=== PATIENT | male | born 1965 | race Caucasian/White ===

== ENCOUNTER 2021-09-07 09:36 | Emergency (ER) | payer OTHER, SELFPAY ==
[2021-09-07 10:04] VITALS: BP 171/100; PULSE 100; RESP 18; TEMP 36.7; O2SAT 95; BMI 32.0
--- NOTE | 2021-09-07 10:13 | ED.GENADULT ---
HPI - General Adult General Chief complaint: Upper Respiratory Symptoms Stated complaint: COVID SYMPTONS Time Seen by Provider: 09/07/21 10:13 Source: patient Limitations: no limitations History of Present Illness HPI narrative: Patient presents with a few day history of congestion sinus pressure headache. Patient had a fever last night. Patient is on vaccinated for COVID-19 has a history of diet-controlled diabetes. Patient does not like to take medications or other vaccines. Symptoms mild to moderate patient states he has a dry cough at times. Symptoms mild to moderate. Related Data Allergies Allergy/AdvReac Type Severity Reaction Status Date / Time No Known Allergies Allergy Unverified 06/23/20 15:31 [No Known Allergies*] Review of Systems Constitutional: Constitutional: Denies chills and Reports fever(s) ENT: Reports nasal congestion and Reports sore throat Cardiovascular: Cardiovascular: Denies chest pain, Denies lightheadedness and Denies dyspnea Respiratory: Respiratory: Denies dyspnea Gastrointestinal: Gastrointestinal: Denies nausea and Denies vomiting Musculoskeletal: Musculoskeletal: Denies muscle weakness Endocrine: Endocrine: Reports no additional endocrine complaints [facility] Past Medical History Attestation statement: The following information was validated with the patient. Medical History Diabetes Social History Social History Advance Directives: No Advance Directives Information Provided: No Physical Exam Vital Signs: Vital Signs: Last Vital Signs Temp 98.1 F 09/07/21 10:04 Pulse 100 09/07/21 10:04 Resp 18 09/07/21 10:04 BP 171/100 H 09/07/21 10:04 Pulse Ox 95 09/07/21 10:04 BMI result Body Mass Index 32.0 vital signs have been reviewed as normal and appeared to be correct. Blood pressure normal. Heart rate normal. Respiration rate normal. Temperature normal. Oxygen saturation normal. Appearance: Alert. Oriented X3. No acute distress. Head: Normal external exam. Normocephalic. Atraumatic. Eyes: PERRLA. EOMI. Conjunctiva and sclera normal. Eyelids normal. ENT: Pharynx normal. Uvula midline. Moist mucous membranes. CVS: Heart regular rate and rhythm no murmurs and rubs Respiratory: Breath sounds are clear to auscultation bilaterally. No accessory muscle use noted. Abdomen: Soft nontender no rebound or guarding positive bowel sounds Back: No CVA tenderness. Full range of motion noted. Skin: Skin warm and dry. Normal skin color. Normal skin turgor. No rashes Extremities: No lower extremity edema. Extremities exhibit normal range of motion. Extremities nontender. Neuro: Oriented X 3. No motor deficit. No sensory deficit. Reflexes normal. Course Course Course Narrative: COVID-19 URI Viral syndrome Fever Sinusitis Rapid COVID-19 swab 10:40 a.m. Positive COVID-19 test case discussed with patient at length patient's risk factors of diet-controlled diabetes and obesity was discussed with patient patient has no interest in monoclonal antibody treatment. Patient states he will use [id number] treatment at home. Patient's O2 sat is 94% on room air patient denies any shortness of breath and wants no further treatment at this time. Vaccine options discussed with patient in the future patient is resistant to vaccines at this time. Medical Decision Making Lab Data Labs: Lab Results 09/07/21 Range/Units 10:13 COVID-19 (REG) Positive A (Negative) COVID-19 Clin Com See Note Discharge Plan Discharge Clinical Impression: COVID-19 Patient Disposition: Home, Self-Care Instructions: COVID-19 (Coronavirus Disease 2019) (ED) Additional Instructions: You tested positive COVID-19 Increase fluids rest Tylenol Motrin for pain fever Self quarantine for 10 days Return if symptoms worsen Stand Alone Forms: Work/School Release
[2021-09-07 10:35] LABS: COVID-19 Test Positive (Negative)
[2021-09-07 10:45] VITALS: RESP 18; O2SAT 95
== END 2021-09-07 10:48 | disposition home or self-care (01) ==
PROVIDERS: Physician Assistant; Emergency Provider Emergency Medicine; PCP Advanced Practice Midwife
DX: U07.1 COVID-19 (principal); R51.9 Headache, unspecified
CPT/HCPCS: 36415; 87635; 99283

== ENCOUNTER 2021-09-17 11:06 | Emergency (ER) | payer OTHER, SELFPAY ==
[2021-09-17 11:10] VITALS: BP 141/84; PULSE 109; RESP 18; TEMP 36.8; O2SAT 96; BMI 30.2
[2021-09-17 11:41] LABS: COVID-19 Test Positive (Negative)
--- NOTE | 2021-09-17 12:07 | ED.GENADULT ---
HPI - General Adult General Chief complaint: General Medical Stated complaint: diff breathing Time Seen by Provider: 09/17/21 11:35 Source: patient Mode of arrival: ambulatory Limitations: no limitations History of Present Illness HPI narrative: 55 yo male here seeking covid test to return to work. He tells me he tested positive 09/07 and is currently asymptomatic and is seeking covid test to return to work Related Data Allergies Allergy/AdvReac Type Severity Reaction Status Date / Time No Known Allergies Allergy Unverified 06/23/20 15:31 [No Known Allergies*] Review of Systems Review of Systems: Yes all other systems are reviewed and are negative Constitutional: Constitutional: Reports no additional constitutional complaints, Denies body ache(s), Denies chills, Denies fever(s), Denies headache(s) and Denies weakness Eyes: Eyes: Reports no additional eye complaints and Denies change in vision ENT: Reports system reviewed and no additional complaints, except as documented, Denies dizziness, Denies headache(s), Denies nasal congestion, Denies nasal discharge and Denies neck pain Cardiovascular: Cardiovascular: Reports no additional cardiovascular complaints, Denies chest pain, Denies leg edema and Denies dyspnea Respiratory: Respiratory: Reports no additional respiratory complaints, Denies cough and Denies dyspnea Gastrointestinal: Gastrointestinal: Reports no additional gastrointestinal complaints, Denies abdominal pain, Denies diarrhea, Denies nausea and Denies vomiting Genitourinary: Genitourinary: Denies urinary incontinence Musculoskeletal: Musculoskeletal: Reports no additional musculoskeletal complaints, Denies back pain, Denies arthralgias, Denies joint swelling, Denies neck pain, Denies numbness and Denies tingling Integumentary/Breasts: Skin/Breast: Reports system reviewed and no additional complaints, except as docu and Denies rash Neurologic: Reports system reviewed and no additional complaints, except as documented, Denies Abnormal speech present, Denies dizziness, Denies headache(s), Denies numbness, Denies tingling and Denies weakness PMFSH Past Medical History Attestation statement: The following information was validated with the patient. Source: old records reviewed and nursing notes reviewed Medical History Diabetes Social History Social History Advance Directives: Yes Advance Directives Information Provided: No Advance Directives on File: No Physical Exam Vital Signs: Vital Signs: Last Vital Signs Temp 98.2 F 09/17/21 11:10 Pulse 109 H 09/17/21 11:10 Resp 18 09/17/21 11:10 BP 141/84 H 09/17/21 11:10 Pulse Ox 96 09/17/21 11:10 BMI result Body Mass Index 30.2 Const: General: cooperative, healthy appearing, comfortable and no acute distress Orientation/consciousness: patient oriented x3 Limitations: no limitations HENMT: Head: Yes normal to inspection Ears: hearing grossly normal bilaterally General nose exam: Normal external nose present Face and sinus: Yes normal facial exam Mouth: Normal oral and palatal mucosa present Throat: Yes posterior oropharynx normal Eyes: General: appearance normal, both eyes and all related structures Pupils: Equal, round and reactive pupils present Neck: Neck: Yes normal visual inspection Chest: Chest palpation & inspection: normal inspection of the chest Resp: Effort & Inspection: normal respiratory effort Auscultation: clear to auscultation bilaterally Cardio: Rate: regular rate Rhythm: regular rhythm Peripheral pulses: Peripheral pulses 2+ throughout GI: Inspection: Yes normal to inspection Palpation (GI): Soft to palpation and nontender Auscultation: normal bowel sounds Back/Spine/Pelvis: Thoracic/Lumbar Spine: thoracic and lumbar spine normal to inspection Skin: General skin exam: no rashes or lesions noted Neuro: General: patient oriented x3, no focal motor deficits and normal sensation to monofilament Cranial nerves: Yes Equal, round and reactive pupils present Cognition (Neuro): normal cognition Speech: No Abnormal speech present Gait exam (Neuro): Normal gait present Motor exam (neuro): 5/5 motor strength present throughout Extrem: General: Yes normal to inspection Course Course Course Narrative: 55 yo male here seeking COVID test to return to work. Covid test was sent by triage nurse. Patient the positive on September 07 for COVID. He completed his quarantine today. He tells me that he is feeling well and has no symptoms. He spoke to his employer today and is supposed to return to work tomorrow. He tells me they are requesting he get retested for COVID prior to his return to work. I did explain to the patient that he may test positive for COVID for weeks after his initial diagnosis. This is not a reliable Tool to determine whether he should return to work or not. I explained to him as he is asymptomatic and has completed his quarantine he may return to work even if his test is positive. Medical Decision Making Medical Records Medical records reviewed: Yes I reviewed the patient's medical records. Lab Data Lab results reviewed: Yes I reviewed the patient's lab results. Labs: Lab Results 09/17/21 Range/Units 11:19 COVID-19 (REG) Positive A (Negative) COVID-19 Clin Com See Note Discharge Plan Discharge Clinical Impression: COVID-19 Patient Disposition: Home, Self-Care Instructions: COVID-19 (Coronavirus Disease 2019) (ED) Additional Instructions: You may test positive for weeks after having COVID. You do not need to continue to quarantine. You have completed your quarantine and are symptom free. Discuss this with your emplpyer Referrals: Jovita Shaw MD [Primary Care Provider] - 2 days Stand Alone Forms: Work/School Release Interventions: ED Discharge Assessment Last Done: 09/17/21 11:53 Discharge Date/Time: 09/17/21 11:54
== END 2021-09-17 11:54 | disposition home or self-care (01) ==
PROVIDERS: Emergency Provider Emergency Medicine; PCP Family Medicine
DX: U07.1 COVID-19 (principal)
CPT/HCPCS: 36415; 87635; 99283

== ENCOUNTER → 2024-11-11 15:26 | Outpatient (BNVA) | payer SELFPAY | PROVIDERS: PCP Family Medicine; Visit Provider Urology ==

== ENCOUNTER 2024-12-24 15:03 | Outpatient (AMB) | payer OTHER, SELFPAY ==
--- NOTE | 2024-12-24 15:14 | MHC.OFFVIS ---
Intake Visit Reasons: 4W/PSA/Testo/Med Review Intake Note: Patient is present today for a 4 week/PSA/Testo/Med review Urology Medication:Tadalafil Antibiotic Allergy:METFORMIN Blood Thinner:NONE Diagnostic Tech Required: No Allergies metformin Allergy (Mild, Verified 12/24/24 15:15) Unknown HPI Comments Details: Eloy is a pleasant male. He is a patient of Dr. Shaw. He is seen for the following urologic conditions - recurrent balanitis - erectile dysfunction in setting of type 2 diabetes Follow-up from daily tadalafil trial Low testosterone on review - 272, Free 7 Refill tadalafil prescription Add on demand 20 mg Three-month follow-up repeat lab Recurrent balanitis Has been on Jardiance 25 mg Known side effects balanitis Prior episodes before starting Jardiance Will start closure amoxicillin betamethasone cream Reduced Jardiance to 10 mg If not successful will stop Jardiance Recommend trial of tirzepetide Given complications from Jardiance Erectile dysfunction in setting of diabetes Start 5 mg tadalafil daily Plan check testosterone levels [facility] Medical History (Updated 12/24/24 @ 15:23 by Usman Gutierrez MD) Diabetes mellitus, type II Suspicious nevus Severe obesity Right sided sciatica Onychomycosis Long-term current use of insulin for diabetes mellitus HTN (hypertension) Hyperglycemia Hypercholesteremia Hernia Chronic low back pain Anxiety disorder ADD (attention deficit disorder) Balanitis Diabetes Surgical History (Updated 11/10/24 @ 12:09 by ANNA MARIE Kate) History of vasectomy History of hernia repair Review of Systems Const Denies chills and Denies fever(s) Card Reports no additional complaints and Denies syncope Resp Denies cough GI Denies abdominal pain and Denies heartburn Reports as per HPI and Denies change in libido Neuro Denies syncope Psych Denies change in libido Endo Denies change in libido Physical Exam Const General: cooperative, healthy appearing, comfortable and no acute distress Orientation/consciousness: patient oriented x3 HEENT Face and sinus: Yes normal facial exam Mouth: moist mucous membranes Neck Neck: Yes normal visual inspection, Yes full ROM and Yes trachea midline Chest Chest palpation & inspection: normal inspection of the chest Resp Effort & Inspection: normal respiratory effort, able to speak in complete sentences and no respiratory distress GI Inspection: Yes normal to inspection Back/Spine/Pelvis Cervical Spine: normal cervical lordosis Thoracic/Lumbar Spine: thoracic and lumbar spine normal to inspection Skin General skin exam: no rashes or lesions noted Neuro General: patient oriented x3, gait normal, tone normal and moves all extremities Extrem General: Yes normal to inspection and Yes capillary refill normal Assessment & Plan Assessment & Plan (1) Balanitis: Code(s): N48.1 - Balanitis Category: Medical (2) Erectile dysfunction associated with type 2 diabetes mellitus: Code(s): E11.69 - Type 2 diabetes mellitus with other specified complication; N52.1 - Erectile dysfunction due to diseases classified elsewhere Category: Medical (3) Hypogonadism in male: Code(s): E29.1 - Testicular hypofunction Category: Medical Plan Three-month follow-up lab work Orders: Orders Testosterone, Free/Total 3 Months E11.69 - Type 2 diabetes mellitus with other specified complication, N52.1 - Erectile dysfunction due to diseases classified elsewhere Medications: New tadalafil On demand medication take 60 minutes before intended activity [facility] [address] [id number] 20 mg PO ONCE 30 days PRN 30 tabs 0RF sexual activity E11.69 - Type 2 diabetes mellitus with other specified complication, N52.1 - Erectile dysfunction due to diseases classified elsewhere Changed From empagliflozin Stopped 25 mg, start 10 mg 10 mg PO DAILY 30 days 30 tabs 0RF N48.1 - Balanitis To empagliflozin Stopped 25 mg, start 10 mg 10 mg PO DAILY 90 days 90 tabs 1RF N48.1 - Balanitis Refilled tadalafil [facility] [address] [id number] 5 mg PO DAILY 90 days 90 tabs 1RF sexual activity E11.69 - Type 2 diabetes mellitus with other specified complication, N52.1 - Erectile dysfunction due to diseases classified elsewhere clotrimazole-betamethasone 1-0.05 % Apply thin coat 2 times per day 1 appl topical BID 4 weeks 45 grams 0RF N48.1 - Balanitis Patient Instructions: This note is constructed using voice recognition software. While every effort has been made to ensure accuracy physician allergist immunologist errors may have been included. Imaging studies, laboratory and physical exam results were discussed and reviewed in detail. No major barriers to patient understanding were identified. An opportunity to ask questions regarding the treatment plan was provided. All questions were answered. The patient expressed understanding and agreement with the above treatment plan. The patient is aware they should contact our office by phone for worsening of their current condition or the appearance of new urologic symptoms. Compliance is encouraged with any medications and followup testing that is ordered. It is a privilege to participate in the urologic care of your patient. If you have any questions or concerns regarding treatment for the above conditions, or other urologic issues, please do not hesitate to contact me. The office telephone contact is [phone]. Sincerely, Dr Usman Gutierrez MD, [facility] - Urology Compassionate Specialist Care for the Genitourinary System Coding Level of Care Code Est Pt Level 3 (30191) Diagnoses Balanitis N48.1 Erectile dysfunction associated with type 2 diabetes mellitus E11.69; N52.1 Hypogonadism in male E29.1
== END 2024-12-24 15:30 | disposition home or self-care (01) ==
LOC: HO.HUSH 15:04
PROVIDERS: PCP Family Medicine; Visit Provider Urology
DX: N48.1 Balanitis (principal); E11.69 Type 2 diabetes mellitus with other specified complication; N52.1 Erectile dysfunction due to diseases classified elsewhere; E29.1 Testicular hypofunction
CPT/HCPCS: 99213

== ENCOUNTER 2025-03-26 08:58 | Outpatient (AMB) | payer OTHER, SELFPAY ==
--- NOTE | 2025-03-26 08:59 | A.OFFVIS_ITS ---
Intake Visit Reasons: 3m/Testo Intake Note: Patient is present for 3M/TESTO Urology Medication:TADALAFIL,EMPAGLIFLOZIN Antibiotic Allergy:METFORMIN Blood Thinner:NONE Launch Manager Required: No Allergies metformin Allergy (Mild, Verified 03/26/25 09:00) Unknown HPI Comments Details: Eloy is a pleasant male. He is a patient of Dr. Shaw. He is seen for the following urologic conditions - recurrent balanitis - erectile dysfunction in setting of type 2 diabetes Telemedicine Evaluation 15 min Consultation [employer] Has been on daily tadalafil with 20 mg on demand Testosterone low 270 Will initiate testosterone therapy Had cut back on Jardiance to 10 mg with benefit for urination Recurrent balanitis Has been on Jardiance 25 mg Known side effects balanitis Prior episodes before starting Jardiance Will start closure amoxicillin betamethasone cream Reduced Jardiance to 10 mg If not successful will stop Jardiance Recommend trial of tirzepetide Given complications from Jardiance Erectile dysfunction in setting of diabetes Start 5 mg tadalafil daily Plan check testosterone levels [facility] Medical History Diabetes mellitus, type II Suspicious nevus Severe obesity Right sided sciatica Onychomycosis Long-term current use of insulin for diabetes mellitus HTN (hypertension) Hyperglycemia Hypercholesteremia Hernia Chronic low back pain Anxiety disorder ADD (attention deficit disorder) Balanitis Diabetes Surgical History History of vasectomy History of hernia repair Review of Systems Const All systems reviewed & are unremarkable except as noted in HPI and below Reports no additional complaints Resp Reports no additional complaints GI Reports no additional complaints Reports as per HPI Musc Reports no additional complaints Physical Exam Telemedicine evaluation Appropriate responses Regular breathing rate and rhythm HEENT Head: Yes normal to inspection Ears: hearing grossly normal bilaterally Eyes General: appearance normal, both eyes and all related structures Neck Neck: Yes normal visual inspection Chest Chest palpation & inspection: normal inspection of the chest Resp Effort & Inspection: normal respiratory effort and able to speak in complete sentences Telehealth Telehealth Telehealth Platform: [employer] Location of provider rendering services: practice address Location of patient: address on file Patient Identification confirmed using: Name, : Yes Telehealth method: video Patient verbally consented to treatment: Yes Patient verbally consented to billing insurance company: Yes Patient informed of any privacy concerns related to visit: Yes Minutes spent on Phone/Video with Pt.: 15 Assessment & Plan Assessment & Plan (1) Balanitis: Code(s): N48.1 - Balanitis Category: Medical (2) Erectile dysfunction associated with type 2 diabetes mellitus: Code(s): E11.69 - Type 2 diabetes mellitus with other specified complication; N52.1 - Erectile dysfunction due to diseases classified elsewhere Category: Medical (3) Hypogonadism in male: Code(s): E29.1 - Testicular hypofunction Category: Medical Plan Initiate testosterone Three-month follow-up lab work Orders: Orders Testosterone, Total 2 Months E29.1 - Testicular hypofunction Medications: New testosterone apply 2 pumps over max area - alternate shoulders on alternate days 2 pumps topical DAILY 75 grams 2RF 30 days E29.1 - Testicular hypofunction, R79.89 - Other specified abnormal findings of blood chemistry Patient Instructions: This note is constructed using voice recognition software. While every effort has been made to ensure accuracy printing roller handler errors may have been included. Imaging studies, laboratory and physical exam results were discussed and reviewed in detail. No major barriers to patient understanding were identified. An opportunity to ask questions regarding the treatment plan was provided. All questions were answered. The patient expressed understanding and agreement with the above treatment plan. The patient is aware they should contact our office by phone for worsening of their current condition or the appearance of new urologic symptoms. Compliance is encouraged with any medications and followup testing that is ordered. It is a privilege to participate in the urologic care of your patient. If you have any questions or concerns regarding treatment for the above conditions, or other urologic issues, please do not hesitate to contact me. The office telephone contact is [phone]. Sincerely, Dr Usman Gutierrez MD, [facility] - Urology Compassionate Specialist Care for the Genitourinary System Coding Level of Care Code Tele Est Pt Level 4 (91260) Complex EM visit Add On G2211 Diagnoses Balanitis N48.1 Erectile dysfunction associated with type 2 diabetes mellitus E11.69; N52.1 Hypogonadism in male E29.1
== END 2025-03-26 11:50 | disposition home or self-care (01) ==
LOC: HO.HUSH 08:58
PROVIDERS: PCP Family Medicine; Visit Provider Urology
DX: N48.1 Balanitis (principal); E11.69 Type 2 diabetes mellitus with other specified complication; N52.1 Erectile dysfunction due to diseases classified elsewhere; E29.1 Testicular hypofunction
CPT/HCPCS: 99214; G2211

== ENCOUNTER → 2025-03-26 08:58 | Outpatient (BNVA) | payer OTHER, SELFPAY | PROVIDERS: PCP Family Medicine; Visit Provider Urology ==

== ENCOUNTER 2025-09-01 10:35 | Outpatient (AMB) | payer OTHER, SELFPAY ==
--- NOTE | 2025-09-01 10:35 | MHC.OFFVIS ---
Intake Visit Reasons: Med Review/Testo Lab Intake Note: Reason for Visit: Telehealth Testosterone/Medication Review Urology Meds: Tadalafil, Testosterone, Empagliflozin, Clotrimazole Cream Blood Thinners: None Labs: Testosterone- 408 (06/30/2025) Imaging: None Last PVR: None Face Painter Required: No Accompanied by: Self / Same As Patient Allergies metformin Allergy (Mild, Verified 09/01/25 10:35) Unknown HPI Comments Details: Eloy is a pleasant male. He is a patient of Dr. Shaw. He is seen for the following urologic conditions - recurrent balanitis - erectile dysfunction in setting of type 2 diabetes Telemedicine Evaluation 15 min Consultation [facility] Mayra Video Has been on daily tadalafil with 20 mg on demand Slow improvement in testosterone Discussed application Continue therapy Six-month follow-up lab work Hypogonadism in male Labs - 12/29 272, 07/01 410 Current therapy topical Recurrent balanitis Has been on Jardiance 25 mg Known side effects balanitis Prior episodes before starting Jardiance Will start closure amoxicillin betamethasone cream Reduced Jardiance to 10 mg If not successful will stop Jardiance Recommend trial of tirzepetide Given complications from Jardiance Erectile dysfunction in setting of diabetes Continue 5 mg tadalafil daily [facility] Medical History Diabetes mellitus, type II Suspicious nevus Severe obesity Right sided sciatica Onychomycosis Long-term current use of insulin for diabetes mellitus HTN (hypertension) Hyperglycemia Hypercholesteremia Hernia Chronic low back pain Anxiety disorder ADD (attention deficit disorder) Balanitis Diabetes Surgical History History of vasectomy History of hernia repair Review of Systems Const All systems reviewed & are unremarkable except as noted in HPI and below Reports no additional complaints Resp Reports no additional complaints GI Reports no additional complaints Reports as per HPI Musc Reports no additional complaints Physical Exam Telemedicine evaluation Appropriate responses Regular breathing rate and rhythm HEENT Head: Yes normal to inspection Ears: hearing grossly normal bilaterally Eyes General: appearance normal, both eyes and all related structures Neck Neck: Yes normal visual inspection Chest Chest palpation & inspection: normal inspection of the chest Resp Effort & Inspection: normal respiratory effort and able to speak in complete sentences Telehealth Telehealth Telehealth Platform: [employer] Location of provider rendering services: practice address Location of patient: address on file Patient Identification confirmed using: Name, : Yes Telehealth method: video Patient verbally consented to treatment: Yes Patient verbally consented to billing insurance company: Yes Patient informed of any privacy concerns related to visit: Yes Minutes spent on Phone/Video with Pt.: 15 Assessment & Plan Assessment & Plan (1) Erectile dysfunction associated with type 2 diabetes mellitus: Code(s): E11.69 - Type 2 diabetes mellitus with other specified complication; N52.1 - Erectile dysfunction due to diseases classified elsewhere Category: Medical (2) Hypogonadism in male: Code(s): E29.1 - Testicular hypofunction Category: Medical Plan Six-month follow-up lab work Refill testosterone Orders: Orders Testosterone, Total 5 Months E29.1 - Testicular hypofunction Prostate Specific Antigen 5 Months E29.1 - Testicular hypofunction Hematocrit 5 Months E29.1 - Testicular hypofunction Medications: Refilled testosterone apply 2 pumps over max area - alternate shoulders on alternate days 2 pumps topical DAILY 75 grams 5RF 30 days E29.1 - Testicular hypofunction, R79.89 - Other specified abnormal findings of blood chemistry Patient Instructions: This note is constructed using voice recognition software. While every effort has been made to ensure accuracy seed collector errors may have been included. Imaging studies, laboratory and physical exam results were discussed and reviewed in detail. No major barriers to patient understanding were identified. An opportunity to ask questions regarding the treatment plan was provided. All questions were answered. The patient expressed understanding and agreement with the above treatment plan. The patient is aware they should contact our office by phone for worsening of their current condition or the appearance of new urologic symptoms. Compliance is encouraged with any medications and followup testing that is ordered. It is a privilege to participate in the urologic care of your patient. If you have any questions or concerns regarding treatment for the above conditions, or other urologic issues, please do not hesitate to contact me. The office telephone contact is [phone]. Sincerely, Dr Usman Gutierrez MD, [facility] - Urology Compassionate Specialist Care for the Genitourinary System Coding Level of Care Code Tele Est Pt Level 3 (89661) Complex visit Add On G2211 Diagnoses Erectile dysfunction associated with type 2 diabetes mellitus E11.69; N52.1 Hypogonadism in male E29.1
== END 2025-09-01 12:12 | disposition home or self-care (01) ==
LOC: HO.HUSH 10:35
PROVIDERS: PCP Family Medicine; Visit Provider Urology
DX: E11.69 Type 2 diabetes mellitus with other specified complication (principal); N52.1 Erectile dysfunction due to diseases classified elsewhere; E29.1 Testicular hypofunction
CPT/HCPCS: 99213; G2211